=== PATIENT | female | born 1965 | race Caucasian/White ===

== ENCOUNTER 2017-07-01 14:08 | Inpatient (IN) | payer OTHER ==
[~2017-07-01] VITALS: Ht 152.4 cm; Wt 72.1 kg
[2017-07-01] VITALS (20 sets, daily range): BP systolic 99–155; BP diastolic 56–89
[~2017-07-01 14:08] MED LIST: AMLODIPINE-BEN1 EAC3 PO; APAP650 PO; ASPIR 8181 M1 PO; ATIVAN1 MG PO; BLOOD PRESSURE MED; CLEOCIN HCL150 MG PO; CLEOCIN HCL300 MG PO; FERREX 150150 MG PO; HYDROCHLOROTH12.5 M2 PO; HYDROXYZINE HCL25 M1 PO; IBUPROFEN 800800 M1 PO; IRON325 PO; JANUVIA 50 MG T50 M1 PO; LIPITOR 20 MG T20 M1 PO; MAXZIDE-25 MG1 EACH PO; MEDROLDOSEPACK PO; METFORMIN HCL500 MG PO; NICOTINE TRANSD21 M1; NORCO 5-325 TA1 EAC1 PO; NORCO 5-325 TA1 EACH PO; PERCOCET PO; PHENERGAN 25 MG25 M1 PO; PREDNISONE 20 M20 MG PO; QUINAPRIL-HCTZ1 EACH PO; ULTRAM 50MG TAB50 MG PO; VISTARIL 25 MG25 M1 PO; VYVANSE20 MG PO; VYVANSE70 MG PO; WELLBUTRIN SR150 MG PO; XANAX 0.25 MG0.25 MG PO
[2017-07-01 15:21] LABS: ABSOLUTE BASOPHILS 0.1 thou/uL (0.0-0.2); ABSOLUTE EOSINOPHILS 0.3 thou/uL (0.0-0.7); ABSOLUTE MONOCYTES 0.8 thou/uL (0.0-1.2); ABSOLUTE NEUTROPHILS 9.8 thou/uL (1.6-8.1); BASOPHILS 0.9 %; HEMATOCRIT 38.1 % (37.0-47.0); HEMOGLOBIN 12.9 gm/dL (12.0-15.0); LYMPHOCYTES 15.2 %; MCH 31.4 pg (26.0-34.0); MCHC 33.8 g/dL (28.0-37.0); MCV 92.6 fL (80.0-100.0); MONOCYTES 6.4 %; MPV 7.4 fl. (7.2-11.1); NUCLEATED RBCS 0 /100WBC; PLATELET COUNT* 402 thou/uL (150-400); POLYS 75.5 %; RBC 4.11 mil/uL (4.20-5.00); RDW-CV 13.9 % (10.5-14.5)
[2017-07-01 16:22] LABS: CHOLESTEROL 212 mg/dL (<200); HDL CHOLESTEROL 56 mg/dL (>40); LDL CHOLESTEROL 130 mg/dL (<100); TC:HDL 3.8 Ratio (Not establshd); TRIGLYCERIDE 132 mg/dL (<150); VLDL 26 mg/dL (<40)
[2017-07-01 16:23] LABS: SERUM ASSESSMENT Clear
[2017-07-01 17:01] LABS: ANION GAP 10 mmol/L (7-16); BUN 44 mg/dL (7-18); CALCIUM 9.9 mg/dL (8.5-10.1); CHLORIDE 98 mmol/L (98-107); CO2 26 mmol/L (21-32); CREATININE 2.2 mg/dL (0.6-1.3); GLUCOSE 201 mg/dL (70-99); POTASSIUM 4.3 mmol/L (3.5-5.1); SODIUM 134 mmol/L (136-145)
[2017-07-01 17:12] LABS: ALBUMIN 4.2 g/dL (3.4-5.0); ALKALINE PHOSPHATASE 150 U/L (46-116); LIPASE 406 U/L (73-393); NT-PRO BRAIN NAT PEPTIDE 163 pg/mL (<300); SGOT 22 U/L (15-37); SGPT 29 U/L (30-65); TOTAL BILIRUBIN 0.5 mg/dL (<0.1-1.0); TOTAL PROTEIN 8.4 g/dL (6.4-8.2); TROPONIN-I LEVEL <0.06 ng/mL (<0.06)
--- NOTE | 2017-07-01 19:41 | NUR ---
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 RIGHT GROIN ACCESS C/D/I, NO HEMATOMA NOTED, 2+ PEDAL PULSE PRESENT. PT. A/OX4, VSS, MONITOR PLACED TRACING SR. PT. C/O CHEST PRESSURE STILL WITH DEEP BREATH. FULL ASSESSMENT AND ADMISSION PROCESS COMPLETED, REFER TO CHARTING. HOME MED REC. COMPLETED, HOWEVER PT. UNSURE OF SOME MED'S AND DOSES. FAMILY TO BRING UPDATED LIST. PT. ORIENTED TO ROOM, CALL LIGHT IN REACH, WILL CONTINUE WITH PLAN OF CARE.
--- NOTE | 2017-07-01 20:05 | CARD ---
[address] [address] CARDIAC CATH REPORT Name: OMERO CAZARES Room: [address] IN [facility]#: [id number] Admission: 07/01/17 Attend Phys: Chela Arana Discharge: Date of : 69 Report #: [id number] THIS REPORT FOR: //name// APPROVED REPORT Patient Details Patient Status: ED Room #: 13 The patient is a 51 year-old female Event Personnel Alfred Castillo Stone Crusher Operator, Idalia Arechiga RN Monitor, Joanne Snowden RN RN, Michael Flores (R) Scrub Procedures Performed Art Access - R femoral artery* Left Heart Cath Coronaries, Bypass Grafts [id number] CCORCABG Hemostasis w/ Mynx Hemostasis with Manual pressure , Left Heart Catheterization, CLARKE Angiogram, SVG Angiogram Risk Factors Diabetes Tobacco History () Previous Procedures/Diagnoses Previous CABG Admission/Lab Medications/Medications given during procedure Solumedrol IV 125 mg, Benadryl IV 50 mg, Midazolam (Versed) IV 2 mg, Fentanyl IV 50 mcg Procedure Narrative The patient was brought urgently to the Cardiac Catheterization Laboratory and was prepped and draped in a sterile manner. The right femoral was infiltrated with 1% Lidocaine subcutaneous anesthesia. A 6fr Ultimum Sheath sheath was inserted into the right femoral artery. Coronary angiography was performed using coronary diagnostic catheters. The right coronary system was accessed and visualized with a diagnostic JR4 catheter. The left coronary system was accessed and visualized with a diagnostic JL4 catheter. The left ventricle was accessed and visualized with a 6Fr Pig catheter. Closure device was deployed with a 6 Fr mynx. Hemostasis was obtained with manual pressure following sheath removal without any complications. The patient tolerated the procedure well and there were no complications associated with the procedure. Mynx failed and manual pressure held. Hemostasis [place] [address] CARDIAC CATH REPORT Name: OMERO CAZARES Room: [address] IN [facility]#: [id number] Admission: 07/01/17 Attend Phys: Chela Arana Discharge: Date of : 69 Report #: [id number] Intraoperative Conscious Sedation Sedation start time: 3:53 Case end Time: 4:24 Fentanyl 50 mcg Versed 2 mg Fluoro Time: 4.5 minutes Dose: 870 mGy Contrast Type and Amount: Visipaque 190 ml [place] Artery Percent Stenosis Grafts (Complete if Previous CABG=Yes: Percent Stenosis) CLARKE graft to the distal LAD widely patent. Saphenous vein graft to the PDA of the right coronary artery widely patent. Saphenous vein graft sequentially grafted to the first diagonal, second diagonal and second obtuse marginal branch widely patent. Diagnostic Cath Left Main Normal LAD 70% stenosis proximally, 99% stenosed in its midportion, filled distally by CLARKE graft without hemodynamically significant stenoses distally. Diagonal 1 70% proximal stenosis, filled by graft Diagonal 2 70% proximal stenosis, filled by graft Circumflex Percent stenosed proximally, 90% stenosed after the takeoff of a marginal branch in the midportion. OM1 Small and normal. OM2 Large and free of significant disease. Filled by graft. Right Coronary 70% narrowed proximally. Normal in its mid and distal portion. R PDA Normal RPLV Normal Left Ventriculography The left ventricular ejection fraction is estimated to be >70%. Left ventricular wall motion abnormalities are not present. Hemodynamics The aortic pressure is 109/62 mmHg with a mean of 80 mmHg. The left ventricular pressure is 91/0 mmHg with a mean of mmHg. The left ventricular end diastolic pressure is 14 [place] [address] CARDIAC CATH REPORT Name: OMERO CAZARES Room: [address] IN [facility].#: [id number] Admission: 07/01/17 Attend Phys: Chela Arana Discharge: Date of : 69 Report #: [id number] 1. Three-vessel coronary artery disease as outlined above. 2. Minimally elevated left ventricular end-diastolic pressure. 3. Normal left ventricular systolic function. 4. Patent CLARKE graft to the LAD. 5. Patent saphenous vein graft to the PDA. 6. Patent saphenous pain graft sequentially to the first diagonal, second diagonal and second obtuse marginal branch. Recommendations Smoking Cessation 1. Continue aggressive risk factor modification. <ELECTRONICALLY SIGNED> By: Alfred Castillo MD, FACC 07/01/172003 03 03Micmino Castillo MD, FACC /INF
[2017-07-02] VITALS (7 sets, daily range): BP systolic 96–118; BP diastolic 51–66
[2017-07-02 05:26] LABS: HEMATOCRIT 35.1 % (37.0-47.0); HEMOGLOBIN 11.9 gm/dL (12.0-15.0); MCH 31.7 pg (26.0-34.0); MCHC 34.1 g/dL (28.0-37.0); MCV 93.1 fL (80.0-100.0); MPV 7.5 fl. (7.2-11.1); NUCLEATED RBCS 0 /100WBC; PLATELET COUNT* 367 thou/uL (150-400); RBC 3.77 mil/uL (4.20-5.00); RDW-CV 13.9 % (10.5-14.5); WBC 10.8 thou/uL (4.0-11.0)
[2017-07-02 05:54] LABS: CALCIUM 9.1 mg/dL (8.5-10.1)
[2017-07-02 06:02] LABS: ABSOLUTE LYMPHOCYTES 0.6 thou/uL (0.8-5.3); ABSOLUTE NEUTROPHILS 10.2 thou/uL (1.6-8.1); ANISOCYTOSIS 1+; PLATELET ESTIMATE ADEQUATE; POIKILOCYTOSIS 1+
--- NOTE | 2017-07-02 06:19 | NUR ---
PT IS ABLE TO COMMUNICATE NEEDS TO STAFF EFFECTIVELY. CURRENT PAIN MEDICATION REGIMEN HAS BEEN ADEQUATE FOR CONTROLLING HER PAIN UP TO THIS TIME. CARDIAC CATH SITE IS C/D/L WITH NO OBSERVABLE EVIDENCE OF A HEMATOMA, UP TO THIS TIME. PT HAS BEEN UP TO VOID SEVERAL TIMES SINCE COMING OFF BEDREST; TOLERATED WELL. BP HAS BEEN MORE SOFT THIS AM; SHE HAS BEEN ASYMPOMATIC THUS FAR.
--- NOTE | 2017-07-02 06:25 | CON ---
[address] [address] CONSULTATION Name: OMERO CAZARES Room: [address] IN .R.#: [id number] Admission: 07/01/17 Attend Phys: Chela Arana Discharge: Date of : 69 Report #: [id number] THIS REPORT FOR: //name// CC: Dr. Hannah Covington TYPE OF REPORT: Cardiology consultation. INDICATION: ST-elevation myocardial infarction. HISTORY OF PRESENT ILLNESS: The patient is a 51-year-old white female who had 5-vessel coronary artery bypass grafting in June of 2016. At that time, she had a CLARKE graft to the LAD, saphenous vein graft to the right coronary artery and saphenous vein graft in sequential fashion to diagonal, ramus and obtuse marginal branches. At that time, she was diagnosed with significant right carotid disease and is status post right carotid endarterectomy in August of 2016. Cardiac risk factors include hypertension, dyslipidemia, diabetes and tobacco use. The patient began having chest pain approximately an hour prior to presenting to the Emergency Room. She describes the pain as midsternal, associated with some nausea with radiation to the left arm and neck. EKG shows ST-elevation in the inferior leads with subtle Q-waves in lead III. The patient states the pain started basically in her arms and began to worsen at which time she presented to the Emergency Room for further treatment. At the time of my interview, she appears relatively stable, although she continues to have some midsternal discomfort. PAST MEDICAL HISTORY: 1. Coronary artery disease. 2. Hypertension. 3. Dyslipidemia. 4. Type 2 diabetes mellitus. 5. Tobacco use. PAST SURGICAL HISTORY: 1. Five-vessel coronary artery bypass grafting as outlined above. 2. Right carotid endarterectomy as outlined above. FAMILY HISTORY: Positive for coronary artery disease. The patient has a brother who has had previous coronary stenting. ALLERGIES: None documented. SOCIAL HISTORY: The patient smokes tobacco and cigarettes. [place] [address] CONSULTATION Name: OMERO CAZARES Room: [address]#: [id number] Admission: 07/01/17 Attend Phys: Chela Arana Discharge: Date of : 69 Report #: [id number] REVIEW OF SYSTEMS: GENERAL: She denies convulsions, seizures or focal paralysis. In general, there is no unexplained weight loss or fever. RESPIRATORY: She has occasional cough that is nonproductive. She denies underlying lung disease. CARDIOVASCULAR: As outlined above. ENDOCRINE: She has type 2 diabetes mellitus. She denies thyroid disease. GASTROINTESTINAL: No vomiting, hematemesis, melena or hematochezia. GENITOURINARY: No dysuria or hematuria. HEMATOLOGIC AND LYMPHATIC: No history of anemia, bleeding disorder, blood clots or cancer. ALLERGY AND IMMUNOLOGIC: No significant medical or seasonal allergies. PSYCHIATRIC: She denies depression or anxiety. MUSCULOSKELETAL: She denies arthritis or connective tissue disease. SKIN: No recent rashes, hives or chronic skin conditions. She does have some easy bruising from antiplatelet therapy. EYES: She denies any visual changes. EARS, NOSE, MOUTH AND THROAT: She denies epistaxis or dentures were decreased hearing. PHYSICAL EXAMINATION: VITAL SIGNS: Stable. Blood pressure 138/92, pulse 86 and regular. GENERAL: This is a pleasant young lady, in no distress. Mood and affect appropriate. HEENT: Extraocular muscles intact. Mucous membranes moist. NECK: Examination of the neck shows no jugular venous distention. There is a well-healed right carotid endarterectomy scar. I do not appreciate bruit. CHEST: Reveals clear lung herzog without wheezes or rales. CARDIAC: Reveals a regular rhythm with normal S1 and S2. I do not appreciate gallop or murmur. ABDOMEN: Reveals normal bowel sounds. The abdomen is soft and nontender. EXTREMITIES: Show no edema. Peripheral pulses 2+ and easily palpable. RADIOLOGICAL DATA: A 12-lead EKG shows sinus rhythm with ST-elevation in leads II and III. There are Q-waves in lead III. No other acute ST or T-wave abnormalities noted. LABORATORY DATA: Available labs are reviewed. Coags are within normal limits. White blood cell count 13.0; hemoglobin 12.9 and platelet count 402,000. CMP pending. IMPRESSION AND RECOMMENDATIONS: 1. ST-elevation myocardial infarction. The patient will be taken urgently to the cardiac catheterization lab. Angiography would be performed and possible intervention pending the [place] [address] CONSULTATION Name: OMERO CAZARES Room: [address] IN [facility]#: [id number] Admission: 07/01/17 Attend Phys: Chela Arana Discharge: Date of : 69 Report #: [id number] 2. Coronary artery disease. The patient is on appropriate medications at home. We will continue the patient's home medications. 3. Hyperlipidemia. Fasting lipid profile will be obtained and is currently pending. 4. Diabetes. Treatment per primary physician. 5. Hypertension. Blood pressure appears relatively stable at this time. We will make adjustments to her antihypertensive medications as needed. 6. Smoking, cessation advised. <ELECTRONICALLY SIGNED> By: Alfred Castillo MD, FACC 07/02/17 0625 [id number] 0008Micmino Castillo MD, FACC /nt
--- NOTE | 2017-07-02 09:30 | NUR ---
PT SITTING SEMI-STEPHEN'S IN BED. O X 4, COMMUNICATING NEEDS ADEQUATELY. ASSESSMENT COMPLETE. 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 PT C/O PAIN IN EPIGASTRIC REGION OF ABDOMEN. IBUPROFEN GIVEN PER JUL. BP 98/51, WILL REASSESS AT 1030. PT GOAL IS TO OBTAIN OXY IR FOR PAIN BUT EDUCATION GIVEN R/T LOW BP. PT TEARFUL. NEEDED ITEMS AND CALL LIGHT IN REACH.
--- NOTE | 2017-07-02 10:49 | NUR ---
Pt out of room, CM to f/u later
[2017-07-02] MEDS ORDERED: PROTONIX 20 MG20 M1 PO (14:58)
--- NOTE | 2017-07-02 15:00 | NUR ---
PT DC ORDER PENDING CARDIOLOGY OK. CONTACTED FINANCIAL DEVELOPER PHILIP WHO STATES SHE WILLL TALK WITH DR. LUIS. DR. LUIS STATES THE PATIENT SHOULD RECEIVE A PROTON PUMP INHIBITOR WITH DC MEDS. RELAYED THIS INFORMATION TO DR. SHULTZ.
[2017-07-02] MEDS ORDERED: ROXICODONE5 M2 PO (15:01)
--- NOTE | 2017-07-02 16:15 | EKG ---
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: AMADOR : 1965 Requested By: Kalia Kyle Order Number: [id number] MD: Jean-Claude Krueger Measurements Intervals [place] Rate: 85 P: -8 [place]: 158 QRS: 35 QRSD: 97 T: 100 QT: 378 QTc: 450 Interpretive Statements Sinus rhythm Compared to ECG 07/27/2016 00:40:45 Sinus tachycardia no longer present Electronically Signed On 07-02-2017 16:14:55 PHOTOCOPY OPERATOR by Jean-Claude Krueger [email or web address] <ELECTRONICALLY SIGNED> By: Jean-Claude Krueger MD, [facility] 07/02/17 1614 1423 142 Jean-Claude Krueger MD, FACC /EPI
--- NOTE | 2017-07-02 16:18 | EKG ---
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: : 1965 Requested By: Andre Covington Order Number: [id number] Candis MD: Jean-Claude Krueger Measurements Intervals [place] Rate: 74 P: -8 [place]: 151 QRS: 30 QRSD: 88 T: 89 QT: 421 QTc: 467 Interpretive Statements Sinus rhythm Baseline wander in lead(s) V1 Compared to ECG 07/27/2016 00:40:45 Sinus tachycardia no longer present Electronically Signed On 07-02-2017 16:17:57 CLERK CHECKER by Jean-Claude Krueger [email or web address] <ELECTRONICALLY SIGNED> By: Jean-Claude Krueger MD, [facility] 07/02/17 1617 08 08 Jean-Claude Krueger MD, [facility] /EPI
--- NOTE | 2017-07-02 18:00 | NUR ---
DC INSTRUCTIONS REVIEWED WITH PT AND SO. ANSWERED ALL QUESTIONS TO PT/SO SATISFACTION. PT EXPRESSES GRATITUDE FOR PAIN MED SCRIPT. IV AND THERMOFORMING OPERATOR DC'D. PT IN POSSESSION OF ALL BELONGINGS. PT'S SO TO TRANSPORT PT TO HOME VIA CAR. PT LEFT UNIT AMBULATING APPROX 1820 WITH NURSING STAFF.
[2017-07-03 02:07] LABS: GLYCOHEMOGLOBIN (HGB A1C) 7.4 % (4.8-5.6)
== END 2017-07-02 18:28 | disposition home or self-care (01) | DRG 287 ==
LOC: M.CL 14:08 → M.ERS 14:08 → M.CL 15:33 → M.TBA-CV 15:33 → M.CL 15:47 → M.TBA-ER 17:51 → M.2W 17:51
PROVIDERS: Emergency Medicine; Internal Medicine Cardiovascular Disease; ADMIT Internal Medicine
DX: I25.119 Atherosclerotic heart disease of native coronary artery with unspecified angina pectoris (principal); N18.4 Chronic kidney disease, stage 4 (severe); I50.32 Chronic diastolic (congestive) heart failure; I10 Essential (primary) hypertension; E11.9 Type 2 diabetes mellitus without complications; F32.9 Major depressive disorder, single episode, unspecified; E78.5 Hyperlipidemia, unspecified; E11.22 Type 2 diabetes mellitus with diabetic chronic kidney disease; I12.9 Hypertensive chronic kidney disease with stage 1 through stage 4 chronic kidney disease, or unspecified chronic kidney disease; F17.210 Nicotine dependence, cigarettes, uncomplicated; Z95.1 Presence of aortocoronary bypass graft; Z90.49 Acquired absence of other specified parts of digestive tract; Z91.041 Radiographic dye allergy status; Z82.49 Family history of ischemic heart disease and other diseases of the circulatory system